=== PATIENT | male | born 1995 | race African-American/Black ===

== ENCOUNTER 2016-09-11 08:45 | Inpatient (IN) | payer OTHER ==
--- NOTE | ~2016-09-11 | DS ---
Unit #: [id number] #: [id number] Patient: CHARLY PHILIP [id number] [facility] [address] [place] [address] [id number] MR#: [id number] NAME: CHARLY PHILIP ROOM: [facility] Age: 21 Sex: M Admission Date: 09/11/2016 : 1995 Discharge Date: 09/12/2016 Attending Physician: Renzo Rodriguez M.D. DISCHARGE SUMMARY IDENTIFYING INFORMATION The patient is a 21-year-old male, admitted to the [address] [place] [address] unit following an ingestion of ibuprofen, Tylenol, clindamycin, and another antibiotic as well as a pint of poonam. HOSPITAL COURSE The patient was admitted to the [address] [place] [address] unit and placed on suicide precautions. He was watched for any signs of alcohol withdrawal, but exhibited none. His admitting labs, however, did indicate the presence of an elevated glucose of 292 and the patient was begun on Glucophage 500 mg b.i.d. by the nurse practitioner. The patient was contrite over the ensuing hospitalization on 09/11/2016. He remained in the hospital for another day of observation, during which he remained pleasant and cooperative and appropriately contrite over the ensuing hospitalization. He stated that he and his girlfriend had reconciled and he requested discharge on 09/12/2016. He was not at that point felt to meet criteria for ongoing involuntary hospitalization and discharge was ordered. FINAL DIAGNOSES Alcohol use disorder, adjustment disorder with depressed mood, diabetes mellitus, status post polypharmacy ingestion without sequelae. DISPOSITION ON DISCHARGE The patient is discharged on the following medications; Glucophage 500 mg b.i.d. before meals for diabetic management. DISCHARGE INSTRUCTIONS No dietary or physical restrictions were placed upon the patient at the time of discharge. FOLLOWUP Followup will take place through the auspices of community mental health resources in the [facility]. PROGNOSIS The patient's prognosis is considered fair. Dictated by... Renzo Rodriguez M.D. PABLO/neha Unit #: [id number] #: [id number] Patient: CHARLY PHILIP TD: 09/12/2016 23:16 JOB #: [id number] DISCHARGE SUMMARY X Renzo Rodriguez MD DISCHARGE SUMMARY
--- NOTE | ~2016-09-11 | CO ---
Unit #: [id number] #: [id number] Patient: CHARLY PHILIP [id number] [place] [address] [id number] MR#: [id number] NAME: CHARLY PHILIP ROOM: [facility] Age: 21 Sex: M Admission Date: 09/11/2016 : 1995 Attending Physician: Renzo Rodriguez M.D. Consultation Date: 09/11/2016 CONSULTATION REPORT SUBJECTIVE Charly is a 21-year-old who was admitted with depression after an alleged overdose of ibuprofen. He was treated in the emergency room at [facility]. At the time of admission, he gave no history of diabetes mellitus. However, his blood sugar at [facility] was 292 and random Accu-Chek after his admission to [facility] was 362. He has no complaints of polyuria or polydipsia. DIAGNOSTIC STUDIES LABORATORY RESULTS: BUN/creatinine 20/1.0. PLAN Plan will be to start him on Glucophage 500 mg one p.o. b.i.d., first dose now. He will need to follow up with primary care upon discharge. Dictated by... Aurelia Dick P.A.-C. for Denia Dunaway/neha TD: 09/12/2016 17:54 JOB #: [id number] CONSULTATION REPORT X Aurelia Dick CONSULTATION REPORT
--- NOTE | ~2016-09-11 | PA ---
Unit #: [id number] #: [id number] Patient: CHARLY PHILIP [id number] [facility] [address] [place] [address] [id number] MR#: [id number] NAME: CHARLY PHILIP ROOM: P206 Age: 21 Sex: M Admission Date: 09/11/2016 : 1995 Date of Assessment: Attending Physician: Renzo Rodriguez M.D. Admitting Physician: Renzo Rodriguez M.D. PSYCHIATRIC ASSESSMENT IDENTIFYING INFORMATION The patient is a 21-year-old male, admitted following an ingestion of ibuprofen and alcohol. CHIEF COMPLAINT None given. INFORMANTS The patient. The patient's reliability is fair. HISTORY OF PRESENT ILLNESS The patient is a 21-year-old male, admitted following an ingestion of ibuprofen. The patient reports that this had taken place after an argument with his girlfriend over his recent infidelity. The patient is currently denying suicidal or homicidal ideation. Does admit that he was intoxicated when this occurred. He does report that he was drinking alcohol at the time of this ingestion. The patient denies prior psychiatric contact or suicide attempts or gestures and is currently denying suicidal ideation, expressing appropriate contrition over the ensuing hospitalization. He denies recent changes in sleep or appetite. 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 He completed four and half years at [employer] where he played football, but did not complete his degree. PAST PSYCHIATRIC HISTORY As above. PAST MEDICAL HISTORY Noncontributory. MEDICATIONS None. ALLERGIES None. FAMILY HISTORY Noncontributory. SOCIAL HISTORY The patient is originally from [place] from [place]. He reports occasional use of alcohol, but denies use of other psychoactive substances. His educational and vocational history are noted previously. Unit #: [id number] #: [id number] Patient: CHARLY PHILIP He lives with his girlfriend and their new born child. MENTAL STATUS EXAMINATION At this time reveals the patient to be a well-developed, well-nourished male, appearing his stated age. He is in no apparent physical distress at the time of the examination. He is awake, alert, and oriented in all spheres. His mood is euthymic. His affect full range. Speech is generally well coherent. There are no gross deficits in memory or cognition noted. General intelligence is judged to be in the average range based on fund of knowledge. The patient is cooperative throughout the interview. He is currently denying suicidal, homicidal, or psychotic features. His judgment and insight appear to be intact. ASSETS Motivation for change. LIABILITIES None noted. DIAGNOSTIC IMPRESSION Adjustment disorder, depressed mood; hyperglycemia. TREATMENT PLAN The patient remains hospitalized for safety and stabilization. We will watch for 24 hours to see the patient had no symptoms of alcohol withdrawal or recurrent suicidal thinking. I will ask that he will be seen by the nurse practitioner related to an admitting glucose level of 292. ESTIMATED STAY IN THE HOSPITAL 2 to 3 days. Dictated by... Renzo Rodriguez M.D. PABLO/neha TD: 09/12/2016 02:37 JOB #: [id number] PSYCHIATRIC ASSESSMENT X Renzo Rodriguez MD X PSYCHIATRIC ASSESSMENT
--- NOTE | ~2016-09-11 | HP ---
Unit #: [id number] #: [id number] Patient: CHARLY PHILIP [id number] [place] [address] [id number] MR#: [id number] NAME: CHARLY PHILIP ROOM: [facility]Note 2]6 Age: 21 Sex: M Admission Date: 09/11/2016 : 1995 Attending Physician: Renzo Rodriguez M.D. Admitting Physician: Renzo Rodriguez M.D. HISTORY AND PHYSICAL HISTORY OF PRESENT ILLNESS Charly is a 21 year old admitted to [address] [place] [address] with depression over an overdose of Ibuprofen. He was treated in the Emergency Room at [facility] and when medically stable transferred to [facility] for psychiatric care. PAST MEDICAL HISTORY Diabetes mellitus PAST SURGICAL HISTORY Bilateral knees. ALLERGIES No known drug allergies. SOCIAL HISTORY He denies cigarettes, alcohol and illicit drug use. FAMILY HISTORY Medically noncontributory. REVIEW OF SYSTEMS CONSTITUTIONAL: No fever or chills. HEENT: Denies any sore throat, ear pain or runny nose. CARDIOVASCULAR: Denies chest pain, irregular heart rhythm or palpitations. CHEST: Denies shortness of breath or cough. No hemoptysis. GASTROINTESTINAL: Denies nausea, vomiting, diarrhea or chronic constipation. ENDOCRINE: Denies history of increased thirst or urination. No recent significant weight loss or gain. GENITOURINARY: Denies dysuria, frequency, or hematuria. SKIN: Denies any rashes. HEMATOLOGIC: Denies history of increased bleeding or bruising. MUSCULOSKELETAL: Denies any hot, swollen joints. No generalized muscle pain. NEUROLOGIC: Denies problems with vision or speech. No frequent, severe headaches. No numbness, tingling or weakness in any extremities. Denies loss of bladder or bowel control. CURRENT MEDICATIONS 1. Glucophage 500 mg b.i.d. 2. Milk of Magnesia p.r.n. 3. Maalox p.r.n. Unit #: [id number] #: [id number] Patient: CHARLY PHILIP 4. Tylenol p.r.n. PHYSICAL EXAMINATION GENERAL: Alert, well-nourished, in no apparent distress. VITAL SIGNS: Blood pressure 117/68, heart rate 78, respirations 16, temperature 98.6. WEIGHT: 234 pounds. HEIGHT: 6'2". SKIN: Warm and dry without rash or lesion. HEENT: Normocephalic. TMs not viewed. Oral and nasal passages clear. Conjunctivae clear. Pupils equal, round and reactive to light and accommodation. Extraocular movements intact. NECK: Supple without lymphadenopathy or thyromegaly. HEART: Regular rate and rhythm without murmur. LUNGS: Clear. ABDOMEN: Soft, nontender. : Not done. EXTREMITIES: No evidence of cyanosis, clubbing or edema. Moves all extremities without focal deficit. NEUROLOGICAL: Grossly within normal limits. Cranial Nerves: II: Visual rai are intact. III, IV AND : Extraocular movements are intact. Pupils are equal, round and reactive to light. V: Facial sensation is grossly normal. VII: Facial movements and expression are normal. VIII: Auditory acuity grossly intact. IX, X: Uvula is midline. Phonation is normal. XI: Patient shrugs shoulders and turns head normally. XII: Tongue protrudes in the midline. Sensory and Motor Function: Sensory and motor sensation is grossly normal. Motor: moves all extremities well. Coordination: Gait is normal. Deep Tendon Reflexes: Intact. IMPRESSION 1. Psychiatric admission. 2. Diabetes mellitus. The patient had not been started on any medications prior to this admission. RECOMMENDATIONS PSYCHIATRIC: Per psychiatrist. MEDICAL: 1. I see no contraindications to participating in facility's activities. 2. Continue Glucophage 500 mg b.i.d. He will need to followup with his primary care physician concerning his diabetes. MEDICAL PROGNOSIS Good. MEDICAL CONDITION Stable. Dictated by... Aurelia Dick P.A.-C. for Marvin Paulino M.D. Unit #: [id number] #: [id number] Patient: CHARLY PHILIP KALA/brian TD: 09/12/2016 02:36 JOB #: [id number] HISTORY AND PHYSICAL X Aurelia Dick X HISTORY AND PHYSICAL
== END 2016-09-12 13:57 | DRG 881 ==
LOC: P2S 08:45
DX: F43.21 Adjustment disorder with depressed mood (principal); E11.65 Type 2 diabetes mellitus with hyperglycemia; F10.20 Alcohol dependence, uncomplicated
CPT/HCPCS: 82947